=== PATIENT | female | born 1970 | race Caucasian/White ===

== ENCOUNTER → 2016-10-27 | Outpatient (CLI) | payer BC ==
--- NOTE | 2016-10-27 21:41 | PN ---
DATE OF SERVICE: 10/27/2016 A 46-year-old lady who has been followed in the sleep center for treatment of obstructive sleep apnea/hypopnea syndrome. Patient continues to use her CPAP equipment any significant problems. Recently she was not able to use it for several days because of her flu symptoms. I checked her CPAP. It is an automatic regimen and most of the time pressure is 18 cm of water. Leak is acceptable at 26 L/min. Apnea-hypopnea index reading is 5.0. Patient feels comfortable with the machine. Usage is about 19 out of 30 nights more than 4 hours and 62 out of 90 nights more than 4 hours, but patient feels better with the machine and benefiting from treatment. MEDICATIONS: Lisinopril/hydrochlorothiazide. PHYSICAL EXAMINATION: GENERAL: A pleasant patient without any distress. VITAL SIGNS: BP 119/50, HR 78, RR 16. Height 5 foot 4 inches, weight 238, BMI 40.8. Temp 97.9. Oxygen saturation at room air 98%. HEENT: PERRLA, EOMI, Evaluation of the oropharynx showed tongue protrudes midline. Extremely low soft palate. NECK: Supple. No JVD, Thyroid is not palpable. LUNGS: Clear to percussion and to auscultation. Good air exchange. No wheezing or rhonchi. HEART: S1, S2 regular. No murmurs, gallops, or rubs. ABDOMEN: Soft and nontender. Bowel sounds are present. No organomegaly appreciated. DIGITAL ADVERTISING SPECIALIST: Awake, alert, and oriented x3. Cranial nerves 2 to 7 intact. There is no fasciculation or atrophy noted. No focal deficits observed. IMPRESSION: 1. Obstructive sleep apnea/hypopnea syndrome in severe range. Apnea-hypopnea index 47.9 with severe oxygen desaturation to 58.1 on control with continuous positive airway pressure. The patient improved her compliance to practically borderline. She is benefiting from treatment. 2. Depression. 3. Obesity. 4. History of attention deficit hyperactivity disorder. 5. Asthma. 6. Pancreatitis. 7. Allergies. 8. Acid reflux. 9. Status post left knee surgery. 10. Status post right shoulder surgery. PLAN: 1. Patient will continue to use CPAP equipment every night for the whole night. 2. Losing weight. 3. Sleep hygiene with regular time in bed for at least 8 hours. 4. No driving if feeling any sleepiness. Thank you very much for allowing me to participate in the management of your patient. Sincerely, Seth Nogueira MD, PhD, FAASM Diplomat of [place] [employer], Sleep Medicine Board by [place] [employer] [place] [employer] Salesperson of [facility] [place]
== END | disposition home or self-care (01) ==
LOC: SLEEP 15:03
PROVIDERS: ATTEND Internal Medicine
DX: G47.33 Obstructive sleep apnea (adult) (pediatric) (principal); F32.9 Major depressive disorder, single episode, unspecified; E66.9 Obesity, unspecified; Z68.41 Body mass index [BMI] 40.0-44.9, adult; F90.9 Attention-deficit hyperactivity disorder, unspecified type; J45.909 Unspecified asthma, uncomplicated; K85.90 Acute pancreatitis without necrosis or infection, unspecified; Z91.09 Other allergy status, other than to drugs and biological substances; K21.9 Gastro-esophageal reflux disease without esophagitis; Z98.890 Other specified postprocedural states; Z79.899 Other long term (current) drug therapy

== ENCOUNTER → 2017-08-03 | Outpatient (CLI) | payer BC ==
--- NOTE | 2017-08-04 12:46 | ECHOF ---
Referral Reason:chest pain MEASUREMENTS -------- HEIGHT: 162.6 cm WEIGHT: 108.9 kg BP: RVIDd: 2.2 cm (< 3.3) IVSd: 1.4 cm (0.6 - 1.1) LVIDd: 4.1 cm (3.9 - 5.3) LVPWd: 1.4 cm (0.6 - 1.1) IVSs: 2.0 cm LVIDs: 2.0 cm LVPWs: 2.0 cm LAESV Index (A-L): 13.89 ml/m Ao Diam: 2.4 cm (2.0 - 3.7) AV Cusp: 1.6 cm (1.5 - 2.6) LA Diam: 3.1 cm (2.7 - 3.8) MV EXCURSION: 17.896 mm (> 18.000) MV EF SLOPE: 87 mm/s (70 - 150) EPSS: 0.4 cm MV E Gino: 1.15 m/s MV DecT: 256 ms MV A Gino: 0.79 m/s MV E/A Ratio: 1.46 FINDINGS -------- Sinus rhythm. This was a technically difficult study with suboptimal views. The left ventricular size is normal. There is moderate concentric left ventricular hypertrophy. L eft ventricular systolic function is hyperdynamic with an estimated EF of >70%. The right ventricle is normal in size and function. Normal LA size by volume 22+/-6 ml/m2. The right atrium is normal in size. 3.5 ml of Lumason was utilized for enhancement of images The aortic valve was not well visualized. There is no evidence of aortic regurgitation. There is no evidence of aortic stenosis. The mitral valve is normal. There is trace mitral regurgitation. No regurgitation noted Right ventricular systolic pressure is normal at < 35 mmHg. There is no ev idence of pulmonary hypertension. The pulmonic valve was not well visualized. The aortic root size is normal. Normal inferior vena cava with normal inspiratory collapse consistent with estimated right atrial pre ssure of 5 mmHg. The pericardium is normal. There is no pericardial effusion. CONCLUSIONS -------- 1. Sinus rhythm. 2. This was a technically difficult study with suboptimal views. 3. The left ventricular size is normal. 4. There is moderate concentric left ventricular hypertrophy. 5. Left ventricular systolic function is hyperdynamic with an estimated EF of >70%. 6. Normal LA size by volume 22+/-6 ml/m2. 7. 3.5 ml of Lumason was utilized for enhancement of images 8. The aortic valve was not well visualized. 9. There is trace mitral regurgitation. 10. No regurgitation noted 11. Right ventricular systolic pressure is normal at < 35 mmHg. 12. There is no evidence of pulmonary hypertension. 13. The pulmonic valve was not well visualized. 14. The aortic root size is normal. 15. There is no pericardial effusion. CHAIN TESTING MACHINE OPERATOR: Jaiden Awad RDCS
== END | disposition home or self-care (01) ==
LOC: RADECHMAIN 15:38
PROVIDERS: ATTEND Family Medicine
DX: I51.7 Cardiomegaly (principal); R07.9 Chest pain, unspecified
CPT/HCPCS: 93306; Q9950

== ENCOUNTER → 2017-08-10 | Outpatient (CLI) | payer BC ==
--- NOTE | 2017-08-11 09:25 | XR ---
EXAMINATION TYPE: XR shoulder complete RT DATE OF EXAM: 08/10/2017 CLINICAL HISTORY: Chronic right shoulder pain from prior rotator cuff injury TECHNIQUE: Three views of the right shoulder are obtained. COMPARISON: None. FINDINGS: There is no acute fracture/dislocation evident in the right shoulder. The acromioclavicul ar and demonstrates moderate arthropathy with marginal osteophytes, subchondral cysts and joint space narrowing. Additional 2 subchondral cyst and sclerosis are seen of the greater tuberosity at the ins ertion of the rotator cuff musculature. The visualized ribs are intact and unremarkable. IMPRESSION: 1. No acute fracture or dislocation in the right shoulder. 2. Degenerative changes at the insertion of the rotator cuff on the greater tuberosity. 3. Moderate acromioclavicular arthropathy.
== END | disposition home or self-care (01) ==
LOC: RADXRMAIN 15:53
PROVIDERS: ATTEND Family Medicine
DX: M12.811 Other specific arthropathies, not elsewhere classified, right shoulder (principal)

== ENCOUNTER → 2017-08-28 | Outpatient (CLI) | payer BC ==
--- NOTE | 2017-08-28 19:43 | XR ---
EXAMINATION TYPE: XR shoulder complete LT DATE OF EXAM: 08/28/2017 COMPARISON: NONE HISTORY: Shoulder pain TECHNIQUE: 3 views FINDINGS: I see no fracture nor dislocation. Joint spaces are normal. There are no pathologic calcifi cations. IMPRESSION: Negative left shoulder exam.
== END ==
LOC: RADXRMAIN 16:38
PROVIDERS: ATTEND Family Medicine
DX: M25.512 Pain in left shoulder (principal)

== ENCOUNTER → 2017-09-14 | Outpatient (CLI) | payer BC ==
--- NOTE | 2017-09-14 17:07 | MR ---
EXAMINATION TYPE: MR shoulder LT wo con DATE OF EXAM: 09/14/2017 COMPARISON: Plain film 08/28/2017 HISTORY: Left Shoulder pain with Limited Range of Motion x6 months TECHNIQUE: Multiplanar, multisequence imaging of the left shoulder is performed without contrast. FINDINGS: Rotator Cuff: Some increased signal is present at the anterior insertion of the rotator cuff compatib le with a partial full-thickness tear the supraspinatus tendon at its insertion. Tendinosis is suspec enmanuel within the rotator cuff tendon with thickening and increased signal. Partial undersurface tear ma y be present. Fluid is present in the subacromial subdeltoid bursa. Acromioclavicular Joint: Arthropathy change causes some mass effect on the musculotendinous junction of supraspinatus Glenohumeral Joint: Intact Labrum: There is some increased signal within the superior labrum, difficult to exclude labral tear o n the basis of this noncontrast exam Biceps Tendon: The long head of biceps is in normal location within bicipital groove. Bone marrow signal: No focal abnormal marrow signal is appreciated. Other: No additional significant abnormality is appreciated. IMPRESSION: Partial full-thickness tear of the rotator cuff as described. Possible SLAP lesion.
== END | disposition home or self-care (01) ==
LOC: RADMRIMAIN 15:49
PROVIDERS: ATTEND Family Medicine
DX: M75.122 Complete rotator cuff tear or rupture of left shoulder, not specified as traumatic (principal)

== ENCOUNTER → 2018-08-30 | Outpatient (CLI) | payer BC ==
--- NOTE | 2018-08-30 22:21 | PN ---
PROGRESS NOTE DATE OF SERVICE: 08/30/2018 This patient is a 48-year-old lady who has been followed in Sleep Center for treatment of obstructive sleep apnea-hypopnea syndrome. The patient successfully continues to use her CPAP equipment every night for the whole night without problems related to mask fitting, pressure or humidification. [place] Sleepiness Scale is 13. I checked her CPAP unit. Range of the pressure is from 5 to 20. Most of the time pressure is in the range of 16.9 cm of water. Leak is 12 L/minute, which is normal. Usage is 100% of nights for more than 4 hours. Average usage is 7.4 hours, which is perfect. Apnea-hypopnea index is 4, which is absolutely normal. MEDICATIONS: 1. Lisinopril/hydrochlorothiazide. 2. Lexapro. 3. Strattera. 4. [place]. 5. Loratadine. 6. Nexium. PHYSICAL EXAMINATION: GENERAL: A pleasant patient without distress. VITAL SIGNS: BP 130/65, HR 77, RR 16, height 5 feet 3-3/4 inches, weight 229.6 pounds with body mass index 39.6. Patient's weight decreased by 18 pounds. Temperature 98.2, oxygen saturation at room air 99%. HEENT: PERRLA, EOMI. Evaluation of oropharynx showed tongue protrudes midline. Low position of soft palate. Mallampati III. NECK: Supple. No JVD. Thyroid is not palpable. LUNGS: Clear to percussion and to auscultation. Good air exchange. No wheezing or rhonchi. HEART: S1, S2 regular. No murmurs, gallops or rubs. ABDOMEN: Obese. EXTREMITIES: No clubbing or cyanosis. BENEFITS OFFICER: Awake, alert, and oriented X3. Cranial nerves 2 to 7 intact. There is no fasciculation or atrophy. noted. No focal deficits observed. IMPRESSION: 1. Obstructive sleep apnea-hypopnea syndrome. The patient has demonstrated 100% compliance with treatment, benefitting from treatment. 2. Hypertension. 3. History of depression. 4. Obesity. 5. History of attention-deficit/hyperactivity disorder. 6. History of asthma. 7. Allergies. 8. Acid reflux. 9. Status post left knee surgery. 10.Status post right shoulder surgery. PLAN: 1. Patient will continue to use her CPAP equipment every night for the whole night. 2. We will maintain all necessary prescriptions for CPAP supplies, including mask, tube, filters. 3. The patient will continue to lose weight. 4. No driving if feeling any sleepiness. 5. Follow-up visit in one year or earlier if patient has any problems. Thank you very much for allowing me to participate in the management of the patient. Sincerely, Seth Nogueira MD, PhD, FAASM Diplomat of [place] [employer] Specialties [place] [employer] Medicine [employer] Instructor of [facility] [place] MMODL / VIDAN: [id number] /
== END | disposition home or self-care (01) ==
LOC: SLEEP 16:27
PROVIDERS: ATTEND Internal Medicine
DX: G47.33 Obstructive sleep apnea (adult) (pediatric) (principal); I10 Essential (primary) hypertension; F32.9 Major depressive disorder, single episode, unspecified; E66.9 Obesity, unspecified; F90.9 Attention-deficit hyperactivity disorder, unspecified type; J45.909 Unspecified asthma, uncomplicated; T78.40XA Allergy, unspecified, initial encounter; K21.9 Gastro-esophageal reflux disease without esophagitis; Z98.890 Other specified postprocedural states; Z79.891 Long term (current) use of opiate analgesic; Z79.899 Other long term (current) drug therapy; Z99.89 Dependence on other enabling machines and devices; Z68.39 Body mass index [BMI] 39.0-39.9, adult

== ENCOUNTER → 2019-01-28 | Outpatient (CLI) | payer BC ==
--- NOTE | 2019-01-28 14:24 | XR ---
EXAMINATION TYPE: XR lumbosacral spine min 4V DATE OF EXAM: 01/28/2019 CLINICAL HISTORY: pain COMPARISON: NONE TECHNIQUE: Frontal, lateral, and oblique images of the lumbar spine are obtained. FINDINGS: There are 5 lumbar type vertebral bodies identified. The lumbar spine shows satisfactory alignment without evidence of acute fracture or dislocation. Vertebral body heights are within normal limits. Mild degenerative disc space narrowing and minimal spondylosis. The overlying soft tissue appears unremarkable. IMPRESSION: No acute fracture or dislocation is seen in the lumbar spine.ICD 10 NO FRACTURE, INITIAL EVALUATION
== END | disposition home or self-care (01) ==
LOC: RADXRMAIN 13:51
PROVIDERS: ATTEND Family Medicine
DX: M51.9 Unspecified thoracic, thoracolumbar and lumbosacral intervertebral disc disorder (principal)
CPT/HCPCS: 72110

== ENCOUNTER → 2019-05-22 | Outpatient (CLI) | payer OTHER ==
--- NOTE | 2019-05-22 13:34 | XR ---
EXAMINATION TYPE: XR lumbar spine 2 or 3V DATE OF EXAM: 05/22/2019 CLINICAL HISTORY: Low back pain after injury TECHNIQUE: Frontal and lateral images of the lumbar spine are obtained. COMPARISON: 01/28/2019 FINDINGS: There are 5 lumbar type vertebral bodies identified. The lumbar spine shows satisfactory alignment without evidence of acute fracture or dislocation. Vertebral body heights and disk space he ights are within normal limits. Mild facet arthropathy from L4 through S1 and mild intervertebral dis c space narrowing at L5-S1. The overlying soft tissue appears unremarkable. IMPRESSION: No acute fracture or dislocation is seen in the lumbar spine. Mild multilevel degenerati ve disc disease of the lower lumbar spine.
== END | disposition home or self-care (01) ==
LOC: RADXRMAIN 13:13
PROVIDERS: ATTEND Emergency Medicine
DX: M51.36 Other intervertebral disc degeneration, lumbar region (principal)
CPT/HCPCS: 72100

== ENCOUNTER → 2020-02-17 | Outpatient (CLI) | payer BC ==
--- NOTE | 2020-02-18 07:23 | XR ---
EXAMINATION TYPE: XR chest 2V DATE OF EXAM: 02/17/2020 COMPARISON: NONE TECHNIQUE: PA and lateral views submitted. HISTORY: Abnormal blood pressure, COPD FINDINGS: The lungs are clear and there is no pneumothorax, pleural effusion, or focal pneumonia. Arthropathy of the shoulders. Mild hyperinflation relation. Hypertrophic and degenerative change of the spine. H eart size normal with no overt failure. IMPRESSION: 1. No acute process.
== END | disposition home or self-care (01) ==
LOC: RAD 15:54
PROVIDERS: ATTEND Family Medicine
DX: R06.02 Shortness of breath (principal)
CPT/HCPCS: 71046

== ENCOUNTER → 2020-12-10 | Outpatient (CLI) | payer BC ==
--- NOTE | 2020-12-11 07:02 | SFUN ---
SLEEP CENTER FOLLOW UP NOTE DATE OF SERVICE: 12/10/2020 HISTORY OF PRESENT ILLNESS: This is a 50-year-old lady who has been followed in Sleep Center for treatment of obstructive sleep apnea-hypopnea syndrome. I did not see this patient for more than one year. She continued to use her CPAP equipment every night for the whole night. She believes that she has a hole in her hose. [place] Sleepiness Scale today increased to 15. I checked the CPAP unit. Range of the pressure 5-20, average pressure 18.2, usage / nights, more than 4 hours, average 8 hours per night. Leak is 24 L/minute. Apnea- hypopnea index is 3.7, which is normal range. MEDICATIONS: Lexapro 30 mg once a day, BuSpar 30 mg once a day, Strattera 60 mg once a day, Synthroid 100 mg once a day, lisinopril hydrochlorothiazide once a day, Tricor once a day, loratadine once a day, at bedtime as needed, albuterol as needed. PHYSICAL EXAMINATION: GENERAL: lady without distress. VITAL SIGNS: BP 127/76, HR 84, RR 15, height 5 feet and 4 inches, weight 244.6, temperature 97.1. Oxygen saturation at room air 99%: HEENT: PERRLA, EOMI, evaluation of oropharynx showed tongue protrudes midline. Low position of soft palate, Mallampati 3. NECK: Supple, no JVD. Thyroid is not palpable. LUNGS: Clear to percussion and to auscultation. Good air exchange. No wheezing or rhonchi. HEART: S1, S2 regular. No murmurs, gallops, or rubs. ABDOMEN: Soft and nontender. Bowel sounds are present. No organomegaly appreciated. EXTREMITIES: No clubbing or cyanosis. SAP PP CONSULTANT: Awake, alert, and oriented X3. Cranial nerves 2 to 7 intact. There is no fasciculation or atrophy. noted. No focal deficits observed. IMPRESSION: 1. Obstructive sleep apnea-hypopnea syndrome. Patient demonstrated 100% compliance with treatment benefitting from treatment. 2. Hypertension. 3. History of depression. 4. Obesity. 5. History of attention deficit hyperactivity disorder. 6. History of asthma. 7. Allergies. 8. Acid reflux. 9. Status post left knee surgery. 10.Status post right shoulder surgery. PLAN: 1. Patient will continue to use PAP equipment every night for the whole night. 2. Sleep hygiene with regular time in bed for at least 7-1/2 to 8 hours. 3. Precautions related to driving. No driving if feeling sleepiness. 4. I will maintain all necessary prescription for PAP supplies including mask, tube, filters. 5. Watching weight. 6. Follow-up visit in 6 months or earlier if patient has any problems. 7. Prescription for all necessary supplies including a prescription to replace the tube, filters and nasal mask. Thank you very much for allowing me to participate in the management of your patient. Sincerely, Seth Nogueira MD, PhD, FAASM Diplomat of [place] [employer] Specialties [place] [employer] of [employer] Medicine [employer] Apprentice of [facility] [place] MMMICHAEL / LOKESH: [id number] /
== END ==
LOC: SLEEP 14:50
PROVIDERS: ATTEND Internal Medicine
DX: G47.33 Obstructive sleep apnea (adult) (pediatric) (principal); I10 Essential (primary) hypertension; F32.9 Major depressive disorder, single episode, unspecified; E66.9 Obesity, unspecified; J45.909 Unspecified asthma, uncomplicated; F90.9 Attention-deficit hyperactivity disorder, unspecified type; T78.40XA Allergy, unspecified, initial encounter; K21.9 Gastro-esophageal reflux disease without esophagitis; Z98.890 Other specified postprocedural states; Z99.81 Dependence on supplemental oxygen; Z79.899 Other long term (current) drug therapy
CPT/HCPCS: 99211

== ENCOUNTER → 2021-04-19 | Outpatient (CLI) | payer OTHER ==
--- NOTE | 2021-04-20 04:43 | MR ---
EXAMINATION TYPE: MR knee RT wo con DATE OF EXAM: 04/19/2021 COMPARISON: Right knee x-rays April 08, 2021 HISTORY: Rt. knee inner pain, sometimes outer pain and swelling, recent twisting injury TECHNIQUE: Multiplanar, multisequence imaging of the right knee is performed without IV contrast. FINDINGS: MEDIAL MENISCUS: Horizontal increased signal extends to involve anterior and posterior horn extending through the central body, more oblique component posterior horn extends to inferior articular surfac e sagittal image 10. LATERAL MENISCUS: Anterior and posterior horns are intact without tear. CRUCIATE LIGAMENTS: The anterior posterior cruciate ligament is intact and unremarkable. Marked abnor mal signal with Significant tear proximal ACL from the posterior distal femoral attachment COLLATERAL LIGAMENTS: The medial collateral ligament and lateral collateral ligament complex are inta ct and unremarkable. EXTENSOR MECHANISM: Visualized quadriceps and patellar tendons are intact. EFFUSION: Moderate size suprapatellar joint effusion. POPLITEAL CYST: No popliteal/miles cyst. TRICOMPARTMENT SPACES: Mild to moderate tricompartment joint space loss without significant spurring. CARTILAGE: Tricompartmental articular cartilage fairly well preserved. BONE MARROW SIGNAL: Some focal areas of diminished T1 and increased T2 signal involving the tibial pl ateau greatest medial aspect. Overlying articular cartilage is preserved. Sagittal images show subtle low T1 signal extending to articular surface. For reference sagittal image 10 medial aspect medial t ibial plateau. OTHER: No additional significant abnormality is appreciated. IMPRESSION: 1. Tearing through the medial meniscus with full thickness tear involving posterior horn. 2. Significant proximal ACL tear. 3. Moderate-sized suprapatellar joint effusion. 4. [id number] tricompartment degenerative changes greatest medial tibial femoral compartment. S mall area of subchondral insufficiency fracture at this level suspected.
== END | disposition home or self-care (01) ==
LOC: RADMRIMAIN 21:38
PROVIDERS: ATTEND Emergency Medicine
DX: S83.241A Other tear of medial meniscus, current injury, right knee, initial encounter (principal); S83.511A Sprain of anterior cruciate ligament of right knee, initial encounter; M25.461 Effusion, right knee

== ENCOUNTER 2021-06-09 15:14 | Emergency (ER) | payer BC ==
--- NOTE | 2021-06-09 18:02 | ED ---
URI HPI - General Chief Complaint: Upper Respiratory Infection Stated Complaint: COVID+,Wants antibodies Time Seen by Provider: 06/09/21 17:37 Source: patient, RN notes reviewed Mode of arrival: ambulatory Limitations: no limitations - History of Present Illness Initial Comments: Patient is a 51-year-old female with history of asthma, presenting to the emergency department requesting monoclonal antibodies. Patient states she tested +5 days ago, symptoms began a few days before that. She's been having cough, congestion, body aches and chest heaviness when she coughs. She denies any shortness of breath, no chest pains at this time. She denies any abdominal pain, no vomiting, she has had a little bit of diarrhea. Her appetite has been a little bit lower than normal. Patient has no further complaints at this time. Patient was prescribed a prednisone by her family doctor, she is currently on day 4 of this. Her vital signs are stable upon arrival. - Related Data Allergies Allergy/AdvReac Type Severity Reaction Status Date / Time latex Allergy Unknown Verified 06/09/21 16:16 Review of Systems ROS Statement: Those systems with pertinent positive or pertinent negative responses have been documented in the HPI. ROS Other: All systems not noted in ROS Statement are negative. Past Medical History Past Medical History: No Reported History History of Any Multi-Drug Resistant Organisms: None Reported Past Surgical History: No Surgical Hx Reported Past Psychological History: No Psychological Hx Reported Smoking Status: Never smoker Past Alcohol Use History: None Reported Past Drug Use History: None Reported General Exam - General Exam Comments Initial Comments: GENERAL: Patient is well-developed and well-nourished. Patient is nontoxic and in no acute distress. HEAD: Atraumatic, normocephalic. EYES: Pupils equal round and reactive to light, extraocular movements intact, sclera anicteric, conjunctiva are normal. Eyelids were unremarkable. ENT: Moist mucous membranes. NECK: Normal range of motion, supple without lymphadenopathy or JVD. LUNGS: Unlabored respirations. Breath sounds clear to auscultation bilaterally and equal. No wheezes rales or rhonchi. HEART: Regular rate and rhythm without murmurs, rubs or gallops. ABDOMEN: Soft, nontender, normoactive bowel sounds. No guarding, no rebound. No masses appreciated. MUSCULOSKELETAL: Normal extremities with adequate strength and normal range of motion, no pitting or edema. No clubbing or cyanosis. NEUROLOGICAL: Patient is alert and oriented x 3. SKIN: Warm, Dry, normal turgor, no rashes or lesions noted. Limitations: no limitations Course Vital Signs 06/09/21 06/09/21 16:14 18:50 Temperature 98.7 F 97.3 F L Pulse Rate 82 70 Respiratory 20 18 Rate Blood Pressure 148/75 175/61 O2 Sat by Pulse 95 98 Oximetry Medical Decision Making - Medical Decision Making Patient is a 51-year-old female with history of asthma presenting for monoclonal antibodies. She tested positive for cocaine. 5 days ago, symptoms began 7 days ago. Her vitals are stable upon arrival, no acute findings on exam. Patient received monoclonal antibodies without adverse side effects. She will continue on her already prescribed prednisone. I recommend Tylenol or Motrin for any body aches or fevers. She can follow up with her primary care. She is agreeable to this plan of care and she is stable for discharge. Disposition Clinical Impression: COVID-19 Disposition: HOME SELF-CARE Condition: Stable Instructions (If sedation given, give patient instructions): Coronavirus Disease 2019 (COVID-19) Additional Instructions: Please return to the Emergency Department if symptoms worsen or any other concerns. Continue with your steroids. May take Tylenol and/or Motrin for fever or body aches. Increase your fluids. Follow-up with your primary care. Is patient prescribed a controlled substance at d/c from ED?: No Referrals: Arthur Yu DO [Primary Care Provider] - 1-2 days Time of Disposition: 19:49
[2021-06-09] MEDS ORDERED: SODIUM CHLORIDE 0.9% 50 ML IVPB ONE (18:30)
[2021-06-09] MEDS ORDERED: CASIRIVIMAB (REGN10933) (EUA) 600 MG, IMDEVIMAB (REGN10987) (EUA) 600 MG in SODIUM CHLO... IVPB ONE (18:30)
[2021-06-09 20:29] VITALS: BP 132/84; PULSE 76; RESP 22; TEMP 98.3
== END 2021-06-09 20:25 | disposition home or self-care (01) ==
LOC: EC 15:14
DX: U07.1 COVID-19 (principal); Z91.040 Latex allergy status
CPT/HCPCS: 99283; Q0244

== ENCOUNTER → 2021-06-16 | Outpatient (CLI) | payer BC ==
--- NOTE | 2021-06-16 19:24 | SFUN ---
SLEEP CENTER FOLLOW UP NOTE DATE OF SERVICE: 06/16/2021 51-year-old lady has been followed in Sleep Center for treatment of obstructive sleep apnea-hypopnea syndrome. The patient continues to use her CPAP equipment every night. No snoring with the machine. She still has [place] Sleepiness Scale increased to 14, although she does not complain. I checked her CPAP unit. Range of the pressure 5-20 with average pressure 15.3, usage 30/30 nights and 28/30 nights for more than 4 hours. Average 9.5 hours per night. Apnea-hypopnea index only 2.2 which is totally normal and better than during the previous visit. MEDICATIONS: Lisinopril, Synthroid, Tricor, Lexapro, buspirone, Strattera, vitamin D2, loratadine, Singulair, Pro-Air, Zyloprim as needed. PHYSICAL EXAMINATION: GENERAL: Patient in no distress. BP 124/63, HR 94, RR 16, height 5 feet 4 inches, weight 242.8, body mass index 41.5. Temperature 95.9, oxygen saturation at room air 97%. Oropharynx: Low position of soft palate, Mallampati 3. NECK: Supple, no JVD. Thyroid is not palpable. LUNGS: Clear to percussion and to auscultation. Good air exchange. No wheezing or rhonchi. HEART: S1, S2 regular. No murmurs, gallops, or rubs. ABDOMEN: Obese. Soft and nontender. Bowel sounds are present. No organomegaly appreciated. EXTREMITIES: No clubbing or cyanosis. CONNIE CLEANER: Awake, alert, and oriented X3. Cranial nerves 2 to 7 intact. There is no fasciculation or atrophy. noted. No focal deficits observed. IMPRESSION: 1. Obstructive sleep apnea-hypopnea syndrome. Patient demonstrated great compliance with treatment benefitting from treatment. 2. Hypertension. 3. Obesity. 4. History of depression. 5. History of attention deficit hyperactivity disorder. 6. History of asthma. 7. Allergy. 8. Acid reflux. 9. Status post left knee surgery. 10.Status post right shoulder surgery. PLAN: 1. Patient will continue to use PAP equipment every night for the whole night. 2. Sleep hygiene with regular time in bed for at least 7-1/2 to 8 hours. 3. Precautions related to driving. No driving if feeling sleepiness. 4. I will maintain all necessary prescription for PAP supplies including mask, tube, filters. 5. Watching weight. 6. Follow-up visit in 6 months or earlier if patient has any problems. Thank you very much for allowing me to participate in management of your patient. Sincerely, Seth Nogueira MD, PhD, FAASM Diplomat of [place] [employer] Specialties Sleep Medicine Board of [place] Board of Internal Medicine Side Stitcher of [facility] [place] MMAMEYAL / LOKESH: [id number] /
== END ==
LOC: SLEEP 15:53
PROVIDERS: ATTEND Internal Medicine
DX: G47.33 Obstructive sleep apnea (adult) (pediatric) (principal); I10 Essential (primary) hypertension; E66.9 Obesity, unspecified; F32.A Depression, unspecified; F90.9 Attention-deficit hyperactivity disorder, unspecified type; T78.40XA Allergy, unspecified, initial encounter; K21.9 Gastro-esophageal reflux disease without esophagitis; Z98.890 Other specified postprocedural states; Z99.89 Dependence on other enabling machines and devices; Z79.899 Other long term (current) drug therapy; Z68.41 Body mass index [BMI] 40.0-44.9, adult; Z91.040 Latex allergy status

== ENCOUNTER → 2021-12-29 | Outpatient (CLI) | payer BC ==
--- NOTE | 2021-12-29 15:17 | P.PN ---
Subjective DATE: 12/29/2021 FOLLOW UP VISIT. Patient with obstructive sleep apnea hypopnea syndrome return to sleep center for follow-up visit. Patient is using PAP equipment every night for the whole night, getting PAP supplies in time. The patient does not have significant problems with the mask, PAP unit and humidification. [place] sleepiness scale increased to 15. I checked information from PAP unit. PAP unit pressure 5-20 average 18.2 cm H2O. Usage is 98 % for more then 4 hours, average 8.7 hours per night. Leak is 13 l/m, which is in acceptable range. Apnea Hypopnea Index is 3.9, which is normal. MEDICATIONS:1. Lexapro 3 2. Buspirone 3 3. Lisinoprilhydrochlorothiazide once a day 4. TriCor once a day 5. Strattera once a day 6. Loratidine once a day 7. Synthroid once a day 8. Hydroxyzine as needed. 9. Zaleplon as needed to help with falling asleep During physical exam: GENERAL: A pleasant patient without any distress. VITAL SIGNS: BP 157/82, HR 73, RR 14, weight 243.4, temperature 96.5, oxygen saturation at room air 99. HEENT: PERRLA, EOMI.low position of soft palate, Mallapati 3. NECK: Supple. No JVD. LUNGS: Clear to percussion and to auscultation. Good air exchange. No wheezing or rhonchi. HEART: S1, S2 regular. ABDOMEN: Soft and nontender. Obese EXTREMITIES: No clubbing or cyanosis. TROUSSEAU CONSULTANT: Awake, alert, and oriented x3. No focal deficit. Impressions: 1. Obstructive sleep apnea-hypopnea syndrome. Patient demonstrated great compliance with treatment, benefiting from treatment. 2. Some sleepiness during the day according to [place] Sleepiness Scale. 3. Hypertension. 4. Obesity. 5. History of of attention deficit hyperactivity disorder. 6. History of depression. 7. History of asthma. 8. Hypothyroidism. 9. Acid reflux. 10 status post left knee surgery 11. Status post right shoulder surgery Plan: 1. Continue using PAP equipment every night for the whole night. 2. To change air filter at least 1-2 times per month. 3. PAP unit should stay lower then position of the head. 4. Advised patient to remove all remaining water from humidifier canister daily and make it dry after each usage. Refill canister with fresh distilled water before each usage. 5. Sleep hygiene with regular time in bed for at least 8 hours. 6. Precautions related to driving. No driving if feel any sleepiness. 7. I will maintain prescription for PAP supplies including mask, tube, filters. 8. Follow up visit in 6 months or earlier if patient has any problems. 9. Watching weight. 10. If patient will continue to have symptoms of excessive daytime sleepiness we may consider multiple sleep latency test. Thank you very much for allowing me to participate in the management of your patient. Seth Nogueira MD, PhD, FAASM. Diplomat of [place] [employer], Sleep Medicine Board by [place] [employer] Medicine Research Professor Of Biostatistics of [facility] [place]
== END ==
LOC: SLEEP 14:06
PROVIDERS: ATTEND Internal Medicine
DX: G47.33 Obstructive sleep apnea (adult) (pediatric) (principal); I10 Essential (primary) hypertension; E66.9 Obesity, unspecified; F90.9 Attention-deficit hyperactivity disorder, unspecified type; F32.A Depression, unspecified; E03.9 Hypothyroidism, unspecified; K21.9 Gastro-esophageal reflux disease without esophagitis; Z98.890 Other specified postprocedural states; J45.909 Unspecified asthma, uncomplicated; Z99.89 Dependence on other enabling machines and devices; Z79.890 Hormone replacement therapy; Z79.899 Other long term (current) drug therapy; Z91.040 Latex allergy status

== ENCOUNTER → 2022-02-02 | Outpatient (CLI) | payer BC ==
--- NOTE | 2022-02-02 15:14 | XR ---
EXAMINATION TYPE: XR chest 2V DATE OF EXAM: 02/02/2022 COMPARISON: 02/17/2020 INDICATION: Hypertension and asthma TECHNIQUE: Frontal and lateral views of the chest are obtained. FINDINGS: The heart size is normal. The pulmonary vasculature is normal. The lungs are clear. IMPRESSION: 1. No acute pulmonary process.
== END | disposition home or self-care (01) ==
LOC: RADXRMAIN 14:45
PROVIDERS: ATTEND Family Medicine
DX: I10 Essential (primary) hypertension (principal); J45.909 Unspecified asthma, uncomplicated
CPT/HCPCS: 71046

== ENCOUNTER → 2022-02-16 | Outpatient (CLI) | payer BC ==
--- NOTE | 2022-02-21 08:35 | MM ---
Reason for Exam: Screening (asymptomatic). Patient History: Menarche at age 13. Premenopausal. Maternal grandmother had breast cancer, age 68. Risk Values: Lisa 5 year model risk: 0.7%. NCI Lifetime model risk: 6.5%. Tissue Density: There are scattered fibroglandular densities. Findings: Analyzed By CAD. No significant mass, suspicious microcalcification, or other discrete abnormality is seen. Overall Assessment: Negative, BI-RAD 1 Management: Screening Mammogram of both breasts in 1 year. 1. Patient should continue monthly self breast exams. 2. A clinical breast exam by your physician is recommended on an annual basis. 3. This exam should not preclude additional follow-up of suspicious palpable abnormalities. Electronically signed and approved by: Tigist Fuchs M.D. Radiologist
== END | disposition home or self-care (01) ==
LOC: RADMAMWWP 13:38
PROVIDERS: ATTEND Family Medicine
DX: Z12.31 Encounter for screening mammogram for malignant neoplasm of breast (principal); Z80.3 Family history of malignant neoplasm of breast
CPT/HCPCS: 77063; 77067

== ENCOUNTER → 2022-07-14 | Outpatient (CLI) | payer SELFPAY ==
--- NOTE | 2022-07-14 16:44 | P.PN ---
Subjective DATE: 07/14/2022 FOLLOW UP VISIT. Patient with obstructive sleep apnea hypopnea syndrome return to sleep center for follow-up visit. Information from previous visit have been reviewed. Patient is using PAP equipment every night for the whole night, getting PAP supplies in time. The patient does not have significant problems with the mask, PAP unit and humidification. [place] sleepiness scale is increased to 14. I checked information from PAP unit. PAP unit pressure 5-20, average 17.5 cm H2O. Usage is 100 % for more then 4 hours, average [] hours per night. Leak is 28 /m, which is in acceptable range. Apnea Hypopnea Index is [1.6 which is normal. MEDICATIONS:1. Lexapro 2. Strattera 3. Zaleplon 4. Lisinopril hydrochlorothiazide 5. TriCor 6. Synthroid 7. Vitamin D During physical exam: GENERAL: A pleasant patient without any distress. VITAL SIGNS: BP [125/74 HR [81 RR[ 18 weight[ 247.2 temperature [94.9 oxygen saturation at room air[ 98 . HEENT: PERRLA, EOMI.low position of soft palate, Mallapati[ 3 NECK: Supple. No JVD. LUNGS: Clear to percussion and to auscultation. Good air exchange. No wheezing or rhonchi. HEART: S1, S2 regular. ABDOMEN: Soft and nontender.[ Obese EXTREMITIES: No clubbing or cyanosis. CHARGE MASTER SPECIALIST: Awake, alert, and oriented x3. No focal deficit. Impressions: 1. Obstructive sleep apnea-hypopnea syndrome. Patient demonstrated great compliance with treatment, benefiting from treatment. 2. [Obesity 3. [Hypertension 4. [History of ADHD 5. [Patient continued to have symptoms of excessive daytime sleepiness while on treatment with CPAP. Differential diagnosis include hypersomnia. 6. [History of depression 7. [History of asthma 8. [Hypothyroidism Plan: 1. Continue using PAP equipment every night for the whole night. 2. To change air filter at least 1-2 times per month. 3. PAP unit should stay lower then position of the head. 4. Advised patient to remove all remaining water from humidifier canister daily and make it dry after each usage. Refill canister with fresh distilled water before each usage. 5. Sleep hygiene with regular time in bed for at least 8 hours. 6. Precautions related to driving. No driving if feel any sleepiness. 7. I will maintain prescription for PAP supplies including mask, tube, filters. 8. Follow up visit in 6 months or earlier if patient has any problems. 9. Watching and losing weight. Thank you very much for allowing me to participate in the management of your patient. Seth Nogueira MD, PhD, FAASM. Diplomat of [place] Board of Sleep Medicine, Sleep Medicine Board by [place] [employer] Medicine Plumbing Assembler Installer of [facility] [place]
== END ==
LOC: SLEEP 15:46
PROVIDERS: ATTEND Internal Medicine
DX: G47.33 Obstructive sleep apnea (adult) (pediatric) (principal); E66.9 Obesity, unspecified; I10 Essential (primary) hypertension; E03.9 Hypothyroidism, unspecified; Z82.5 Family history of asthma and other chronic lower respiratory diseases; Z86.59 Personal history of other mental and behavioral disorders; Z99.89 Dependence on other enabling machines and devices; Z79.899 Other long term (current) drug therapy; Z79.890 Hormone replacement therapy; Z91.040 Latex allergy status

== ENCOUNTER → 2022-07-22 | Outpatient (CLI) | payer SELFPAY ==
[2022-07-22 18:36] LABS: Basophils # (A) 0.07 X 10*3/uL (0.00-0.10); Basophils % (A) 0.5 %; Eosinophils # (A) 0.32 X 10*3/uL (0.04-0.35); Eosinophils % (A) 2.4 %; HCT 37.2 % (37.2-46.3); HGB 11.8 g/dL (12.0-15.0); Immature Grans, Automated 0.8 %; Lymphocytes # (A) 2.39 X 10*3/uL (0.90-5.00); Lymphocytes % (A) 17.8 %; MCHC 31.7 g/dL (32.0-37.0); MCV 94.7 fL (80.0-97.0); Mean Platelet Volume 11.6 fL (9.5-12.2); Monocytes # (A) 1.05 X 10*3/uL (0.20-1.00); Monocytes % (A) 7.8 %; NRBC Per 100 WBC 0 /100 WBCS (0.0-0.0); Neutrophils # (A) 9.52 X 10*3/uL (1.80-7.70); Neutrophils % (A) 70.7 %; Platelet Count 315 X 10*3/uL (140-440); RBC 3.93 X 10*6/uL (4.10-5.20); RDW 14.5 % (11.5-14.5); WBC 13.46 X 10*3/uL (4.50-10.00)
[2022-07-22 18:46] LABS: ALT 40 U/L (8-44); AST 22 U/L (13-35); African American GFR (CKD) 105.1 (60.0-200.0); BUN/Creat Ratio 20.24 Ratio (12.00-20.00); Blood Urea Nitrogen 15.4 mg/dL (9.0-27.0); Calcium 10.1 mg/dL (8.7-10.3); Carbon Dioxide 25.9 mmol/L (20.0-27.5); Chloride 102 mmol/L (96-109); Creatine Kinase 44 U/L (26-186); Glucose 142 mg/dL (70-110); Non-African American GFR(CKD) 90.7 (60.0-200.0); Potassium 4.3 mmol/L (3.5-5.5); Sodium 141 mmol/L (135-145); Uric Acid 5.1 mg/dL (2.9-7.7)
[2022-07-22 18:52] LABS: Erythrocyte Sedimentation Rate 37 mm/Hr (0-30)
[2022-07-22 19:03] LABS: Rheumatoid Factor, Qnt <10 IU/mL (0-15)
[2022-07-22 21:03] LABS: Cyclic Citrull Pep IgG Unit <0.5 U/mL; Cyclic Citrullinated Pep IgG NEGATIVE (NEGATIVE)
[2022-07-23 12:27] LABS: HLA B27 NEGATIVE
== END | disposition home or self-care (01) ==
LOC: LABWHC1 10:48
PROVIDERS: ATTEND Orthopaedic Surgery
DX: M17.12 Unilateral primary osteoarthritis, left knee (principal); M23.204 Derangement of unspecified medial meniscus due to old tear or injury, left knee; M19.012 Primary osteoarthritis, left shoulder; M75.102 Unspecified rotator cuff tear or rupture of left shoulder, not specified as traumatic; M75.02 Adhesive capsulitis of left shoulder; M75.32 Calcific tendinitis of left shoulder; M54.2 Cervicalgia; M54.12 Radiculopathy, cervical region
CPT/HCPCS: 36415; 80048; 82164; 82306; 82550; 83520; 84439; 84443; 84450; 84460; 84550; 85025; 85652; 86038; 86140; 86200; 86431; 86812

== ENCOUNTER → 2023-03-22 | Outpatient (CLI) | payer OTHER ==
--- NOTE | 2023-03-22 13:27 | P.PN ---
Subjective DATE: 03/22/2023 FOLLOW UP VISIT. Patient with obstructive sleep apnea hypopnea syndrome return to sleep center for follow-up visit. Information from previous visit have been reviewed. Patient is using PAP equipment every night for the whole night, getting PAP supplies in time. The patient does not have significant problems with the mask, PAP unit and humidification. [place] sleepiness scale is increased to 13. I checked information from PAP unit. PAP unit pressure 5-20, average 17.3 cm H2O. Usage is 100 % for more then 4 hours, average 9.1 hours per night. Leak is 20 l/m, which is in acceptable range. Apnea Hypopnea Index is 4.3, which is normal. MEDICATIONS:1. Lexapro 10 mg 3 times a day 2.. To 60 mg once a day 3. Buspirone 10 mg 3 times a day 4. Lisinopril hydrochlorothiazide 2012.5 once a day/ 5 Pro Air 6 Synthroid 7 Zaleplon During physical exam: GENERAL: A pleasant patient without any distress. VITAL SIGNS: BP 146/83, HR 75, RR 20, weight 239, temperature 97.9, oxygen saturation at room air 100 % . HEENT: PERRLA, EOMI.low position of soft palate, Mallapati 3 . NECK: Supple. No JVD. LUNGS: Clear to percussion and to auscultation. Good air exchange. No wheezing or rhonchi. HEART: S1, S2 regular. ABDOMEN: Soft and nontender. Obese EXTREMITIES: No clubbing or cyanosis. MARBLE FINISHER: Awake, alert, and oriented x3. No focal deficit. Impressions: 1. Obstructive sleep apnea-hypopnea syndrome. Patient demonstrated great compliance with treatment, benefiting from treatment. 2. Hypertension . 3. History of ADHD . 4. Obesity, patient lost 8 pounds comparing to the previous visit . 5. History of depression . 6. History of asthma . 7. Hypothyroidism . 8. Patient still has some symptoms of excessive daytime sleepiness while on treatment with CPAP. He may consider multiple sleep latency test in the future if symptoms are not improved . Plan: 1. Continue using PAP equipment every night for the whole night. 2. To change air filter at least 1-2 times per month. 3. PAP unit should stay lower then position of the head. 4. Advised patient to remove all remaining water from humidifier canister daily and make it dry after each usage. Refill canister with fresh distilled water before each usage. 5. Sleep hygiene with regular time in bed for at least 8 hours. 6. Precautions related to driving. No driving if feel any sleepiness. 7. I will maintain prescription for PAP supplies including mask, tube, filters. 8. Watching and losing weight. 9. Follow up visit in 6 months or earlier if patient has any problems. Thank you very much for allowing me to participate in the management of your patient. Seth Nogueira MD, PhD, FAASM. Diplomat of [place] [employer] Sleep Medicine, Sleep Medicine Board by [place] [employer] Internal Medicine Electroplating Technician of [facility] [place]
== END ==
LOC: 3 N SLEEP 13:03
PROVIDERS: ATTEND Internal Medicine
DX: G47.33 Obstructive sleep apnea (adult) (pediatric) (principal); I10 Essential (primary) hypertension; E03.9 Hypothyroidism, unspecified; E66.9 Obesity, unspecified; F90.9 Attention-deficit hyperactivity disorder, unspecified type; F32.A Depression, unspecified; J45.909 Unspecified asthma, uncomplicated; Z79.899 Other long term (current) drug therapy; Z79.890 Hormone replacement therapy; Z91.040 Latex allergy status; Z99.89 Dependence on other enabling machines and devices
CPT/HCPCS: 99212

== ENCOUNTER 2023-06-30 16:36 | Emergency (ER) | payer OTHER ==
[2023-06-30] MEDS ORDERED: KETOROLAC 15 MG/ML 1 ML VIAL IM STA (16:58)
[2023-06-30] MEDS ORDERED: LIDOCAINE 4% PATCH TOPICAL ONE (16:58)
--- NOTE | 2023-06-30 16:58 | ED ---
General Adult HPI - General Stated complaint: back pain Time Seen by Provider: 06/30/23 16:56 Source: patient Mode of arrival: ambulatory Limitations: no limitations - History of Present Illness Initial comments: 53-year-old female presenting with chief complaint of lower back pain. Patient has history of chronic lower back pain. She has radiation of pain down the left leg. No new injury or trauma. No loss of bowel or bladder control or saddle paresthesia. No fevers or chills. No nausea or vomiting. - Related Data Previous Rx's Medication Instructions Recorded Cyclobenzaprine [Flexeril] 10 mg PO TID PRN #15 tab 06/30/23 Allergies Allergy/AdvReac Type Severity Reaction Status Date / Time latex Allergy Unknown Verified 06/09/21 16:16 Review of Systems ROS Statement: Those systems with pertinent positive or pertinent negative responses have been documented in the HPI. ROS Other: All systems not noted in ROS Statement are negative. Past Medical History Past Medical History: No Reported History History of Any Multi-Drug Resistant Organisms: None Reported Past Surgical History: No Surgical Hx Reported Past Psychological History: No Psychological Hx Reported Smoking Status: Never smoker Past Alcohol Use History: None Reported Past Drug Use History: None Reported General Exam - General Exam Comments Initial Comments: Visual Physical Exam Vital signs reviewed General: Well-appearing, nontoxic, no acute distress. Head: Normocephalic, atraumatic Eyes: PERRLA, EOMI ENT: Airway patent Chest: Nonlabored breathing Skin: No visual rash, normal skin tone Neuro: Alert and oriented 3 Musculoskeletal: No gross abnormalities Limitations: no limitations General appearance: alert, in no apparent distress Head exam: Present: atraumatic, normocephalic Eye exam: Present: normal appearance Neck exam: Present: normal inspection Respiratory exam: Absent: respiratory distress Back exam: Present: normal inspection Neurological exam: Present: alert, oriented X3 Psychiatric exam: Present: normal affect, normal mood Skin exam: Present: warm, dry Course Vital Signs 06/30/23 06/30/23 16:55 19:16 Temperature 98.5 F Pulse Rate 79 76 Respiratory 20 14 Rate Blood Pressure 130/74 105/67 O2 Sat by Pulse 98 100 Oximetry Medical Decision Making - Medical Decision Making Was pt. sent in by a medical professional or institution (, PA, COIL CONNECTOR, urgent care, hospital, or long term...) When possible be specific @ -No Did you speak to anyone other than the patient for history (EMS, parent, family, police, friend...)? What history was obtained from this source @ -No Did you review nursing and triage notes (agree or disagree)? Why? @ -I reviewed and agree with nursing and triage notes Were old charts reviewed (outside hosp., previous admission, EMS record, old EKG, old radiological studies, urgent care reports/EKG's, long term records)? Report findings @ -No old charts were reviewed Differential Diagnosis (chest pain, altered mental status, abdominal pain women, abdominal pain men, vaginal bleeding, weakness, fever, dyspnea, syncope, headache, dizziness, GI bleed, back pain, seizure, CVA, palpatations, mental health, musculoskeletal)? @ - MDM Differential Back Pain: Strain, zoster, cauda equina syndrome, epidural abscess, vertebral osteomyelitis, discitis, fracture, subluxation, disc herniation, DJD, spinal stenosis, dissection, AAA, pancreatitis, peptic ulcer disease, pyelonephritis, kidney stone this is not meant to be an all-inclusive list. EKG interpreted by me (3pts min.). @ -As above X-rays interpreted by me (1pt min.). @ -None done CT interpreted by me (1pt min.). @ -None done U/S interpreted by me (1pt. min.). @ -None done What testing was considered but not performed or refused? (CT, X-rays, U/S, labs)? Why? @ -None What meds were considered but not given or refused? Why? @ -None Did you discuss the management of the patient with other professionals (professionals i.e. , PA, COIL CONNECTOR, lab, RT, psych nurse, health care social worker, diesel retrofit designer, teacher, aoc operations intelligence officer, field case manager)? Give summary @ -No Was smoking cessation discussed for >3mins.? @ -No Was critical care preformed (if so, how long)? @ -No Were there social determinants of health that impacted care today? How? (Homelessness, low income, unemployed, alcoholism, drug addiction, transportation, low edu. Level, literacy, decrease access to med. care, fci, rehab)? @ -No Was there de-escalation of care discussed even if they declined (Discuss DNR or withdrawal of care, Hospice)? DNR status @ -No What co-morbidities impacted this encounter? (DM, HTN, Smoking, COPD, CAD, Cancer, CVA, ARF, Chemo, Hep., AIDS, mental health diagnosis, sleep apnea, morbid obesity)? @ -None Was patient admitted / discharged? Hospital course, mention meds given and route, prescriptions, significant lab abnormalities, going to OR and other pertinent info. @ -53-year-old female presenting with chief complaint of lower back pain. History of low back pain. No new injury or trauma. No red flag symptoms. Symptoms improved after Toradol and lidocaine patch. Patient will be discharged home with muscle relaxers. Follow-up with PCP. Report back to ER with any new or worsening symptoms. Discussed return parameters and answered all questions. Patient conveyed verbal understanding and agreed to the plan. I discussed this case in detail with my attending Dr. Blanco Undiagnosed new problem with uncertain prognosis? @ -No Drug Therapy requiring intensive monitoring for toxicity (Heparin, Nitro, Insulin, Cardizem)? @ -No Were any procedures done? @ -No Diagnosis/symptom? @ -Back pain Acute, or Chronic, or Acute on Chronic? @ -Acute on chronic Uncomplicated (without systemic symptoms) or Complicated (systemic symptoms)? @ -uncomplicated Side effects of treatment? @ -No Exacerbation, Progression, or Severe Exacerbation? @ -No Poses a threat to life or bodily function? How? (Chest pain, [place], [place], pneumonia, PE, COPD, DKA, ARF, appy, cholecystitis, CVA, Diverticulitis, Homicidal, Suicidal, threat to staff... and all critical care pts) @ -No Disposition Clinical Impression: Mechanical back pain Disposition: HOME SELF-CARE Condition: Good Instructions (If sedation given, give patient instructions): Acute Low Back Pain (ED) Additional Instructions: Follow-up with PCP. Report back to ER with any new or worsening symptoms. Prescriptions: Cyclobenzaprine [Flexeril] 10 mg PO TID PRN #15 tab PRN Reason: Spasms Is patient prescribed a controlled substance at d/c from ED?: No Referrals: Arthur Yu DO [Primary Care Provider] - 1-2 days Time of Disposition: 18:58
[2023-06-30 17:01] VITALS: TEMP 98.5
[2023-06-30] MEDS ORDERED: CYCLOBENZAPRINE 10MG STARTER 3 TAB BTL PO STA (18:58)
[2023-06-30 19:36] VITALS: BP 105/67; PULSE 76; RESP 14
== END 2023-06-30 19:18 | disposition home or self-care (01) ==
LOC: EC 16:36
DX: M54.50 Low back pain, unspecified (principal); Z91.040 Latex allergy status
CPT/HCPCS: 99283 ×2; 96372 ×2; J1885

== ENCOUNTER → 2023-09-27 | Outpatient (CLI) | payer OTHER ==
[2023-09-27 13:24] VITALS: BP 154/80; PULSE 86; RESP 18; TEMP 97.7
--- NOTE | 2023-09-27 14:04 | P.PN ---
Subjective DATE: 09/27/2023 FOLLOW UP VISIT. Patient with obstructive sleep apnea hypopnea syndrome return to sleep center for follow-up visit. Information from previous visit have been reviewed. Patient is using PAP equipment every night for the whole night, getting PAP supplies in time. The patient does not have significant problems with the mask and humidification. PAP unit is noisy now. [place] sleepiness scale is 12. I checked information from PAP unit. PAP unit pressure 5-20, average 17.3 cm H2O. Usage is 100% for more then 4 hours, average 10.1 hours per night. Leak is 10 l/m, which is in acceptable range. Apnea Hypopnea Index is 3.1, which is normal. Motor life expectancy was exceeded. MEDICATIONS:1. Buspirone 2. Lexapro 3. Singulair 4. Strattera 5. Synthroid 6. Tricor 7. Lisinopril 8. Lunesta During physical exam: GENERAL: A pleasant patient without any distress. VITAL SIGNS: Please see below. HEENT: PERRLA, EOMI.low position of soft palate, Mallapati 3 . NECK: Supple. No JVD. LUNGS: Clear to percussion and to auscultation. Good air exchange. No wheezing or rhonchi. HEART: S1, S2 regular. ABDOMEN: Soft and nontender. Slightly obese EXTREMITIES: No clubbing or cyanosis. GROUND WORKER: Awake, alert, and oriented x3. No focal deficit. Impressions: 1. Obstructive sleep apnea-hypopnea syndrome. Patient demonstrated great compliance with treatment, benefiting from treatment. CPAP unit is old, motor life expectancy was exceeded, unit became noisy. 2. Obesity. 3. Hypertension. 4. History of ADHD. 5. History of depression. 6. History of asthma. 7. Hypothyroidism. Plan: 1. Continue using PAP equipment every night for the whole night. Prescription to replace CPAP unit. 2. To change air filter at least 1-2 times per month. 3. PAP unit should stay lower then position of the head. 4. Advised patient to remove all remaining water from humidifier canister daily and make it dry after each usage. Refill canister with fresh distilled water before each usage. 5. Sleep hygiene with regular time in bed for at least 8 hours. 6. Precautions related to driving. No driving if feel any sleepiness. 7. I will maintain prescription for PAP supplies including mask, tube, filters. 8. Follow up visit after patient will get new CPAP unit. 9. Watching and losing weight. Thank you very much for allowing me to participate in the management of your patient. Seth Nogueira MD, PhD, FAASM. Diplomat of [place] Board of Sleep Medicine, Sleep Medicine Board by [place] Board of Internal Medicine Advanced Solutions Architect of [facility] [place] Objective - Vital Signs Vital signs: Vital Signs Temp 97.7 F 09/27/23 13:18 Pulse 86 09/27/23 13:18 Resp 18 09/27/23 13:18 BP 154/80 09/27/23 13:18 Pulse Ox 98 09/27/23 13:18 FiO2 Intake & Output 09/26/23 09/27/23 09/27/23 18:59 06:59 18:59 Weight 107.518 kg
== END ==
LOC: 3 N SLEEP 13:05
PROVIDERS: ATTEND Internal Medicine
DX: G47.33 Obstructive sleep apnea (adult) (pediatric) (principal); E66.9 Obesity, unspecified; I10 Essential (primary) hypertension; J45.909 Unspecified asthma, uncomplicated; E03.9 Hypothyroidism, unspecified; Z99.89 Dependence on other enabling machines and devices; Z79.899 Other long term (current) drug therapy; Z79.890 Hormone replacement therapy; Z91.040 Latex allergy status; Z68.41 Body mass index [BMI] 40.0-44.9, adult; Z86.59 Personal history of other mental and behavioral disorders
CPT/HCPCS: 99212

== ENCOUNTER → 2024-01-03 | Outpatient (CLI) | payer OTHER ==
[2024-01-03 14:08] VITALS: BP 133/69; PULSE 86; RESP 16; TEMP 98.2
--- NOTE | 2024-01-03 14:36 | P.PROGSL ---
Subjective DATE: 01/03/2024 FOLLOW UP VISIT. Patient with obstructive sleep apnea hypopnea syndrome return to sleep center for follow-up visit after she received new CPAP unit.. Information from previous visit have been reviewed. Patient is using PAP equipment every night for the whole night, getting PAP supplies in time. The patient does not have significant problems with the mask, PAP unit and humidification. [place] sleepiness scale is increased to 13. I checked information from PAP unit. PAP unit pressure 5-20, average 18.1 cm H2O. Usage is 80% and 67% for more then 4 hours, average 7 hours per night. Leak is 15.9 l/m, which is in acceptable range. Apnea Hypopnea Index is 3.5, which is normal. MEDICATIONS: Please see below During physical exam: GENERAL: A pleasant patient without any distress. VITAL SIGNS: Please see below. HEENT: PERRLA, EOMI.low position of soft palate, Mallapati[] . NECK: Supple. No JVD. LUNGS: Clear to percussion and to auscultation. Good air exchange. No wheezing or rhonchi. HEART: S1, S2 regular. ABDOMEN: Soft and nontender.[] EXTREMITIES: No clubbing or cyanosis. PROPERTY ECONOMIST: Awake, alert, and oriented x3. No focal deficit. Impressions: 1. Obstructive sleep apnea-hypopnea syndrome. Patient demonstrated good compliance with treatment, benefiting from treatment. 2. Hypertension. 3. History of ADHD. 4. History of depression. 5. History of asthma. 6. Hypothyroidism. 7. Mild obesity. Plan: 1. Continue using PAP equipment every night for the whole night. 2. To change air filter at least 1-2 times per month. 3. PAP unit should stay lower then position of the head. 4. Advised patient to remove all remaining water from humidifier canister daily and make it dry after each usage. Refill canister with fresh distilled water before each usage. 5. Sleep hygiene with regular time in bed for at least 8 hours. 6. Precautions related to driving. No driving if feel any sleepiness. 7. I will maintain prescription for PAP supplies including mask, tube, filters. 8. Follow up visit in 6 months or earlier if patient has any problems. 9. Watching weight. Thank you very much for allowing me to participate in the management of your patient. Seth Nogueira MD, PhD, FAASM. Diplomat of [place] Board of Sleep Medicine, Sleep Medicine Board by [place] [employer] Medicine Front Of House Manager of [facility] [place] Objective - Vital Signs Vital Signs: Vital Signs Temp 98.2 F 01/03/24 14:07 Pulse 86 01/03/24 14:07 Resp 16 01/03/24 14:07 BP 133/69 01/03/24 14:07 Pulse Ox 97 01/03/24 14:07 FiO2 Intake & Output 01/02/24 01/03/24 01/03/24 18:59 06:59 18:59 Weight 107.955 kg Home Medications: Home Medications Medication Instructions Recorded Confirmed Type Atomoxetine HCl [Strattera] 60 mg PO DAILY 09/27/23 09/27/23 History Escitalopram [Lexapro] 20 mg PO TID 09/27/23 09/27/23 History Eszopiclone [Lunesta] 2 mg PO HS 09/27/23 09/27/23 History Fenofibrate Nanocrystallized 145 mg PO DAILY 09/27/23 09/27/23 History [Tricor] Ferrous Sulfate [Feosol] 325 mg PO DAILY 09/27/23 09/27/23 History Levothyroxine Sodium [Synthroid] 150 mcg PO DAILY 09/27/23 09/27/23 History Lisinopril-Hctz 20-12.5 mg 20 mg PO DAILY 09/27/23 09/27/23 History [Zestoretic 20-12.5] Loratadine [Claritin] 10 mg PO DAILY 09/27/23 09/27/23 History Loratadine [Claritin] 10 mg PO DAILY 09/27/23 09/27/23 History Montelukast [Singulair] 10 mg PO HS 09/27/23 09/27/23 History busPIRone HCl [Buspar] 10 mg PO TID 09/27/23 09/27/23 History
== END ==
LOC: 3 N SLEEP 13:24
PROVIDERS: ATTEND Internal Medicine
DX: G47.33 Obstructive sleep apnea (adult) (pediatric) (principal); I10 Essential (primary) hypertension; F32.A Depression, unspecified; E66.9 Obesity, unspecified; E03.9 Hypothyroidism, unspecified; Z87.09 Personal history of other diseases of the respiratory system; Z79.890 Hormone replacement therapy; Z86.59 Personal history of other mental and behavioral disorders; Z79.899 Other long term (current) drug therapy; Z99.89 Dependence on other enabling machines and devices; Z91.040 Latex allergy status
CPT/HCPCS: 99212

== ENCOUNTER 2024-03-23 19:45 | Emergency (ER) | payer OTHER ==
[2024-03-23 19:53] VITALS: TEMP 98.9
--- NOTE | 2024-03-23 20:08 | ED ---
General Adult HPI - General Chief complaint: Extremity Injury, Upper Stated complaint: R arm injury Time Seen by Provider: 03/23/24 19:56 Source: patient Mode of arrival: ambulatory Limitations: physical limitation - History of Present Illness Initial comments: Patient presents to the ED for evaluation of right arm injury. Patient states that about 2 hours ago used her right arm to catch her mother who was about to fall, and she immediately felt pain in her right upper arm. Patient states that her pain is mainly in her right shoulder and right humerus regions. Patient denies history of right arm fracture or dislocation. Patient denies right upper extremity neurological deficit. Patient also states that she injured her right hip about 2 weeks ago while wave jumping, but she states that that pain is improving and she has been ambulatory without difficulty. Patient denies any other symptoms or complaints. - Related Data Home Medications Medication Instructions Recorded Confirmed Atomoxetine HCl [Strattera] 60 mg PO DAILY 09/27/23 09/27/23 Escitalopram [Lexapro] 20 mg PO TID 09/27/23 09/27/23 Eszopiclone [Lunesta] 2 mg PO HS 09/27/23 09/27/23 Fenofibrate Nanocrystallized 145 mg PO DAILY 09/27/23 09/27/23 [Tricor] Ferrous Sulfate [Feosol] 325 mg PO DAILY 09/27/23 09/27/23 Levothyroxine Sodium [Synthroid] 150 mcg PO DAILY 09/27/23 09/27/23 Lisinopril-Hctz 20-12.5 mg 20 mg PO DAILY 09/27/23 09/27/23 [Zestoretic 20-12.5] Loratadine [Claritin] 10 mg PO DAILY 09/27/23 09/27/23 Loratadine [Claritin] 10 mg PO DAILY 09/27/23 09/27/23 Montelukast [Singulair] 10 mg PO HS 09/27/23 09/27/23 busPIRone HCl [Buspar] 10 mg PO TID 09/27/23 09/27/23 Allergies Allergy/AdvReac Type Severity Reaction Status Date / Time latex Allergy Unknown Verified 03/23/24 19:49 Review of Systems ROS Statement: Those systems with pertinent positive or pertinent negative responses have been documented in the HPI. ROS Other: All systems not noted in ROS Statement are negative. Past Medical History Past Medical History: Hyperlipidemia, Hypertension, Thyroid Disorder Additional Past Medical History / Comment(s): herniation of lumbar disc, Insomnia, Sinus issues, Depression/anxiety History of Any Multi-Drug Resistant Organisms: None Reported Past Surgical History: Heart Catheterization, Orthopedic Surgery Additional Past Surgical History / Comment(s): Rhinoplasty, l knee arthoscopy Past Psychological History: Anxiety, Depression Smoking Status: Never smoker Past Alcohol Use History: Occasional Past Drug Use History: None Reported General Exam Limitations: physical limitation General appearance: alert, in no apparent distress Head exam: Present: atraumatic Neck exam: Present: full ROM. Absent: tenderness Respiratory exam: Present: normal lung sounds bilaterally. Absent: respiratory distress, wheezes, rales, rhonchi, stridor Cardiovascular Exam: Present: regular rate, normal rhythm, normal heart sounds, other (Normal radial pulses bilaterally) Extremities exam: Present: other (Tenderness is noted of the right shoulder and humerus; no definite deformity is noted; no right clavicular or AC joint tenderness; pelvis is stable and nontender; patient has full range of motion at bilateral hips) Back exam: Absent: tenderness Neurological exam: Present: alert, oriented X3. Absent: motor sensory deficit Skin exam: Present: warm, dry, normal color Course Vital Signs 03/23/24 19:49 Temperature 98.9 F Pulse Rate 80 Respiratory 16 Rate Blood Pressure 152/73 O2 Sat by Pulse 99 Oximetry Medical Decision Making - Medical Decision Making Was pt. sent in by a medical professional or institution ([facility], MEDICAL OFFICE ASST, urgent care, hospital, or [place] [facility] facility...) When possible be specific @ -No Did you speak to anyone other than the patient for history (EMS, parent, family, police, friend...)? What history was obtained from this source @ -No Did you review nursing and triage notes (agree or disagree)? Why? @ -I reviewed and agree with nursing and triage notes Were old charts reviewed (outside hosp., previous admission, EMS record, old EKG, old radiological studies, urgent care reports/EKG's, [place] health care facility records)? Report findings @ -No old charts were reviewed Differential Diagnosis (chest pain, altered mental status, abdominal pain women, abdominal pain men, vaginal bleeding, weakness, fever, dyspnea, syncope, headache, dizziness, GI bleed, back pain, seizure, CVA, palpatations, mental health, musculoskeletal)? @ -Arm pain, strain, sprain, fracture, dislocation, arthritis, muscle tear EKG interpreted by me (3pts min.). @ -None done X-rays interpreted by me (1pt min.). @ -Right shoulder and right humerus x-rays were reviewed myself and are negative for acute fracture or dislocation. I agree with the radiologist's interpretations as above. CT interpreted by me (1pt min.). @ -None done U/S interpreted by me (1pt. min.). @ -None done What testing was considered but not performed or refused? (CT, X-rays, U/S, labs)? Why? @ -None What meds were considered but not given or refused? Why? @ -None Did you discuss the management of the patient with other professionals (professionals i.e. , PA, MEDICAL OFFICE ASST, lab, RT, psych nurse, manager social media, dipper operator, teacher, patient safety officer, family caseworker)? Give summary @ -No Was smoking cessation discussed for >3mins.? @ -No Was critical care preformed (if so, how long)? @ -No Were there social determinants of health that impacted care today? How? (Homelessness, low income, unemployed, alcoholism, drug addiction, transportation, low edu. Level, literacy, decrease access to med. care, assisted, rehab)? @ -No Was there de-escalation of care discussed even if they declined (Discuss DNR or withdrawal of care, Hospice)? DNR status @ -No What co-morbidities impacted this encounter? (DM, HTN, Smoking, COPD, CAD, Cancer, CVA, ARF, Chemo, Hep., AIDS, mental health diagnosis, sleep apnea, morbid obesity)? @ -None Was patient admitted / discharged? Hospital course, mention meds given and route, prescriptions, significant lab abnormalities, going to OR and other pertinent info. @ -Patient's right shoulder and humerus x-rays are negative for acute osseous abnormality. I suspect that the patient's pain is likely due to muscle strain and/or sprain. Patient was given a dose of [place] in the ED. Patient states that she has a ride home from the ED tonight. Patient was counseled about arm i njuries (rest, ice, elevation and analgesics). Patient has a right shoulder sling, which she has worn to the ED today. Will discharge patient home at this time with strict return and follow-up instructions. Patient feels comfortable with this plan. Undiagnosed new problem with uncertain prognosis? @ -No Drug Therapy requiring intensive monitoring for toxicity (Heparin, Nitro, Insulin, Cardizem)? @ -No Were any procedures done? @ -No Diagnosis/symptom? @ -Right upper arm injury and pain Acute, or Chronic, or Acute on Chronic? @ -Acute Uncomplicated (without systemic symptoms) or Complicated (systemic symptoms)? @ -Uncomplicated Side effects of treatment? @ -No Exacerbation, Progression, or Severe Exacerbation? @ -No Poses a threat to life or bodily function? How? (Chest pain, [place], [place], pneumonia, PE, COPD, DKA, ARF, appy, cholecystitis, CVA, Diverticulitis, Homicidal, Suicidal, threat to staff... and all critical care pts) @ -No - Radiology Data Right shoulder x-rays: Chronic full-thickness rotator cuff tear right shoulder. Some secondary early degenerative changes at the glenohumeral joint. Moderate AC joint OA. No acute osseous abnormality seen. Right humerus x-rays: No acute osseous abnormality seen. Disposition Clinical Impression: Injury of right upper arm Disposition: HOME SELF-CARE Condition: Stable Instructions (If sedation given, give patient instructions): Arm Pain (ED) Additional Instructions: Return to the ER immediately should you develop new or worsening pain or symptoms. Follow-up closely with your primary care provider. Is patient prescribed a controlled substance at d/c from ED?: No Referrals: Arthur Yu DO [Primary Care Provider] - 1-2 days Time of Disposition: 21:51
--- NOTE | 2024-03-23 21:24 | XR ---
EXAMINATION TYPE: XR shoulder complete 3 views RT, XR humerus 2 views RT DATE OF EXAM: 03/23/2024 Comparison: 08/10/2009 Clinical History: 53-year-old female R arm injury Findings: Right shoulder: There is moderate degenerative change at the AC joint with joint space narrowing, marginal spurring, and capsular hypertrophy. There is some narrowing of the subacromial space and bony irregularity at t he greater tuberosity. Tiny inferior humeral head spur. Right humerus: No acute fracture seen. Elbow articulation grossly intact. Impression: 1. Right shoulder: Chronic full-thickness rotator cuff tear right shoulder. Some secondary early dege nerative change at the glenohumeral joint. Moderate AC joint OA. No acute osseous abnormality seen. 2. Right humerus: No acute osseous abnormality seen. [facility], , 03/23/2024 9:22 PM
[2024-03-23] MEDS: HYDROcodone/APAP 5-325MG 1 EACH TAB PO STA (21:46)
[2024-03-23 21:59] VITALS: BP 143/65; PULSE 79; RESP 18
== END 2024-03-23 21:59 | disposition home or self-care (01) ==
LOC: EC 19:45
CPT/HCPCS: 99283

== ENCOUNTER 2024-06-17 10:22 | Emergency (ER) | payer OTHER ==
--- NOTE | 2024-06-17 12:24 | XR ---
EXAMINATION TYPE: XR hand complete LT DATE OF EXAM: 06/17/2024 11:47 AM COMPARISON: None. CLINICAL INDICATION: Female, 54 years old with history of 1st digit pain, TECHNIQUE: 3 view(s) obtained. FINDINGS: No acute fractures or dislocations evident. Joint spaces are preserved. Soft tissues appear normal. Follow up exams can be performed 7-10 days from acute trauma for continued pain. IMPRESSION: 1. No acute osseous abnormality left hand [facility], , 06/17/2024 12:22 PM
[2024-06-17 13:15] VITALS: RESP 18
--- NOTE | 2024-06-17 13:43 | ED ---
General Adult HPI - General Chief complaint: Extremity Injury, Upper Stated complaint: L hand injury Time Seen by Provider: 06/17/24 10:42 Source: patient, RN notes reviewed Mode of arrival: ambulatory Limitations: no limitations - History of Present Illness Initial comments: 54-year-old female presents to the emergency department for evaluation of left thumb injury. Patient reports that this started 1 week ago after she hit her thumb with a hammer. She notes that the pain radiates down her thumb. Patient has a visible subungual hematoma. She denies recent fever, chills. Reports normal range of motion to the finger and the hand. - Related Data Home Medications Medication Instructions Recorded Confirmed Atomoxetine HCl [Strattera] 60 mg PO DAILY 09/27/23 09/27/23 Escitalopram [Lexapro] 20 mg PO TID 09/27/23 09/27/23 Eszopiclone [Lunesta] 2 mg PO HS 09/27/23 09/27/23 Fenofibrate Nanocrystallized 145 mg PO DAILY 09/27/23 09/27/23 [Tricor] Ferrous Sulfate [Feosol] 325 mg PO DAILY 09/27/23 09/27/23 Levothyroxine Sodium [Synthroid] 150 mcg PO DAILY 09/27/23 09/27/23 Lisinopril-Hctz 20-12.5 mg 20 mg PO DAILY 09/27/23 09/27/23 [Zestoretic 20-12.5] Loratadine [Claritin] 10 mg PO DAILY 09/27/23 09/27/23 Loratadine [Claritin] 10 mg PO DAILY 09/27/23 09/27/23 Montelukast [Singulair] 10 mg PO HS 09/27/23 09/27/23 busPIRone HCl [Buspar] 10 mg PO TID 09/27/23 09/27/23 Allergies Allergy/AdvReac Type Severity Reaction Status Date / Time latex Allergy Unknown Verified 06/17/24 10:29 Review of Systems ROS Statement: Those systems with pertinent positive or pertinent negative responses have been documented in the HPI. ROS Other: All systems not noted in ROS Statement are negative. Past Medical History Past Medical History: Hyperlipidemia, Hypertension, Thyroid Disorder Additional Past Medical History / Comment(s): herniation of lumbar disc, Insomnia, Sinus issues, Depression/anxiety History of Any Multi-Drug Resistant Organisms: None Reported Past Surgical History: Heart Catheterization, Orthopedic Surgery Additional Past Surgical History / Comment(s): Rhinoplasty, l knee arthoscopy Past Psychological History: Anxiety, Depression Smoking Status: Never smoker Past Alcohol Use History: Occasional Past Drug Use History: None Reported General Exam Limitations: no limitations General appearance: alert, in no apparent distress Head exam: Present: atraumatic, normocephalic, normal inspection Eye exam: Present: normal appearance, PERRL, EOMI. Absent: scleral icterus, conjunctival injection, periorbital swelling ENT exam: Present: normal exam, mucous membranes moist Respiratory exam: Present: normal lung sounds bilaterally. Absent: respiratory distress, wheezes, rales, rhonchi, stridor Cardiovascular Exam: Present: regular rate, normal rhythm, normal heart sounds. Absent: systolic murmur, diastolic murmur, rubs, gallop, clicks Extremities exam: Present: full ROM, tenderness (Distal left thumb), normal capillary refill, other (Old subungual hematoma) Neurological exam: Present: alert, oriented X3 Psychiatric exam: Present: normal affect, normal mood Skin exam: Present: warm, dry, intact, normal color. Absent: rash Course Vital Signs 06/17/24 06/17/24 06/17/24 10:26 13:14 14:10 Temperature 97.4 F L 97.6 F 97.9 F Pulse Rate 81 64 77 Respiratory 20 18 18 Rate Blood Pressure 151/82 134/82 126/80 O2 Sat by Pulse 99 97 99 Oximetry Medical Decision Making - Medical Decision Making Was pt. sent in by a medical professional or institution (, PA, WAVE SOLDERING MACHINE OPERATOR, urgent care, hospital, or intermediate...) When possible be specific @ -[No] Did you speak to anyone other than the patient for history (EMS, parent, family, police, friend...)? What history was obtained from this source @ -[No] Did you review nursing and triage notes (agree or disagree)? Why? @ -[I reviewed and agree with nursing and triage notes] Were old charts reviewed (outside hosp., previous admission, EMS record, old EKG, old radiological studies, urgent care reports/EKG's, intermediate records)? Report findings @ -[No old charts were reviewed] Differential Diagnosis (chest pain, altered mental status, abdominal pain women, abdominal pain men, vaginal bleeding, weakness, fever, dyspnea, syncope, headache, dizziness, GI bleed, back pain, seizure, CVA, palpatations, mental health, musculoskeletal)? @ -[Differential Musculoskeletal Muscular strain, contusion, ligament sprain, fracture, arthritis, septic arthritis, bursitis, cellulitis, muscle spasm, nerve compression, DVT, arterial occlusion, herpes zoster, electrolyte abnormality, tumor.... This is not meant to be in all inclusive list] EKG interpreted by me (3pts min.). @ -None X-rays interpreted by me (1pt min.). @ -[None done] CT interpreted by me (1pt min.). @ -[None done] U/S interpreted by me (1pt. min.). @ -[None done] What testing was considered but not performed or refused? (CT, X-rays, U/S, labs)? Why? @ -[None] What meds were considered but not given or refused? Why? @ -[None] Did you discuss the management of the patient with other professionals (professionals i.e. , PA, WAVE SOLDERING MACHINE OPERATOR, lab, RT, psych nurse, geriatric social worker, knife glazer, teacher, articulation officer, patient case coordinator)? Give summary @ -[No] Was smoking cessation discussed for >3mins.? @ -[No] Was critical care preformed (if so, how long)? @ -[No] Were there social determinants of health that impacted care today? How? (Homelessness, low income, unemployed, alcoholism, drug addiction, transportation, low edu. Level, literacy, decrease access to med. care, prison, rehab)? @ -[No] Was there de-escalation of care discussed even if they declined (Discuss DNR or withdrawal of care, Hospice)? DNR status @ -[No] What co-morbidities impacted this encounter? (DM, HTN, Smoking, COPD, CAD, Ca ncer, CVA, ARF, Chemo, Hep., AIDS, mental health diagnosis, sleep apnea, morbid obesity)? @ -[None] Was patient admitted / discharged? Hospital course, mention meds given and route, prescriptions, significant lab abnormalities, going to OR and other pertinent info. @ -[hospital course] Undiagnosed new problem with uncertain prognosis? @ -[No] Drug Therapy requiring intensive monitoring for toxicity (Heparin, Nitro, Insulin, Cardizem)? @ -[No] Were any procedures done? @ -[No] Diagnosis/symptom? @ -[default] Acute, or Chronic, or Acute on Chronic? @ -[default] Uncomplicated (without systemic symptoms) or Complicated (systemic symptoms)? @ -[default] Side effects of treatment? @ -[No] Exacerbation, Progression, or Severe Exacerbation? @ -[No] Poses a threat to life or bodily function? How? (Chest pain, [place], [place], pneumonia, PE, COPD, DKA, ARF, appy, cholecystitis, CVA, Diverticulitis, Homicidal, Suicidal, threat to staff... and all critical care pts) @ -[No] Disposition Clinical Impression: Thumb contusion Disposition: HOME SELF-CARE Condition: Stable Instructions (If sedation given, give patient instructions): Subungual Hematoma (ED) Additional Instructions: Please follow up with your primary care provider. Return to the emergency department for new or worsening symptoms. Is patient prescribed a controlled substance at d/c from ED?: No Referrals: Norm De La Garza DO [Primary Care Provider] - 1-2 days
[2024-06-17] MEDS: KETOROLAC 15 MG/ML 1 ML VIAL IM STA (14:05)
[2024-06-17] MEDS: ACET/COD 300 MG/30 MG STARTER PACK 6 TAB BTL PO STA (14:05)
[2024-06-17 14:11] VITALS: BP 126/80; PULSE 77; TEMP 97.9
== END 2024-06-17 14:11 | disposition home or self-care (01) ==
LOC: EC 10:22
DX: S60.012A Contusion of left thumb without damage to nail, initial encounter (principal); Z91.040 Latex allergy status; W22.8XXA Striking against or struck by other objects, initial encounter
CPT/HCPCS: 73130; 99283; 96372; J1885

== ENCOUNTER → 2024-06-20 | Outpatient (CLI) | payer OTHER ==
--- NOTE | 2024-06-21 07:13 | XR ---
EXAMINATION TYPE: XR hand complete LT DATE OF EXAM: 06/20/2024 4:00 PM COMPARISON: None. CLINICAL INDICATION: Female, 54 years old with history of M79.645 LFT THUMB INJURY SEQUELA, TECHNIQUE: 3 view(s) obtained. FINDINGS: Soft tissues appear normal. No acute fracture or dislocation present. Joint spaces are preserved. Lef t thumb appears intact. Soft tissues are normal. Follow up exams can be performed 7-10 days from acute trauma for continued pain. IMPRESSION: 1. No acute osseous abnormality left hand [facility], , 06/21/2024 7:11 AM
== END | disposition home or self-care (01) ==
LOC: RADXRMAIN 15:41
PROVIDERS: ATTEND Internal Medicine
DX: M79.645 Pain in left finger(s) (principal)

== ENCOUNTER → 2024-12-24 | Outpatient (CLI) | payer BC, OTHER ==
--- NOTE | 2024-12-24 10:30 | MM ---
Reason for Exam: Screening (asymptomatic). Last mammogram was performed 2 year(s) and 10 month(s) ago. Patient History: Menarche at age 13. Patient has no children. Premenopausal. Maternal grandmother had breast cancer, age 68. Last menstrual period: Risk Values: Lisa 5 year model risk: 1.2%. NCI Lifetime model risk: 9.4%. Prior Study Comparison: 02/16/2022 Bilateral MG 3D screening mammo w/cad, [facility]. Tissue Density: There are scattered areas of fibroglandular density. Findings: Analyzed By CAD. Asymmetric density lateral right breast remains unchanged. There is no suspicious group of microcalcifications or new suspicious mass in either breast. Overall Assessment: Benign, BI-RAD 2 Management: Screening Mammogram of both breasts in 1 year. Patient should continue monthly self-breast exams. A clinical breast exam by your physician is recommended on an annual basis. This exam should not preclude additional follow-up of suspicious palpable abnormalities. Note on Lisa scores and lifetime risk: 1. A Lisa score greater than 3% is considered moderate risk. If this is the case, consider specialist referral to assess eligibility for a risk reducing agent. 2. If overall lifetime risk for the development of breast cancer is 20% or higher, the patient may qualify for future screening with alternating mammogram and breast MRI. [facility], , 12/24/2024 10:27 AM. Electronically signed and approved by: Tigist Fuchs M.D. Radiologist
== END | disposition home or self-care (01) ==
LOC: RADMAMWWP 09:06
PROVIDERS: ATTEND Internal Medicine
DX: Z12.31 Encounter for screening mammogram for malignant neoplasm of breast (principal); R92.323 Mammographic fibroglandular density, bilateral breasts; Z80.3 Family history of malignant neoplasm of breast
CPT/HCPCS: 77063; 77067